=== PATIENT | male | born 1960 | race Caucasian/White ===

== ENCOUNTER 2017-06-22 10:24 | Emergency (ER) | payer OTHER ==
[~2017-06-22] VITALS: Ht 180.3 cm; Wt 99.4 kg
[2017-06-22] MEDS ORDERED: NORVASC5 MG PO (14:44)
[2017-06-22 15:08] VITALS: BP 161/92
== END 2017-06-22 15:09 | disposition home or self-care (01) ==
LOC: EME 10:24
PROC: 3E0234Z Introduction of Serum, Toxoid and Vaccine into Muscle, Percutaneous Approach (ICD-10-PCS; principal; 2017-06-22)
DX: S80.212A Abrasion, left knee, initial encounter (principal); S80.211A Abrasion, right knee, initial encounter; S00.81XA Abrasion of other part of head, initial encounter; S00.83XA Contusion of other part of head, initial encounter; S00.412A Abrasion of left ear, initial encounter; M54.2 Cervicalgia; Y93.55 Activity, bike riding; V18.4XXA Pedal cycle driver injured in noncollision transport accident in traffic accident, initial encounter; R42 Dizziness and giddiness; Z23 Encounter for immunization; I10 Essential (primary) hypertension; E78.5 Hyperlipidemia, unspecified; Z91.14 Patient's other noncompliance with medication regimen; Z87.891 Personal history of nicotine dependence
CPT/HCPCS: 70450; 70486; 72125; 99281; 99284; J2405